=== PATIENT | male | born 1960 | race Caucasian/White ===

== ENCOUNTER 2019-05-28 15:07 | Outpatient (RCR) | payer SELFPAY | END 2019-05-29 00:01 | LOC: WOUND 15:07 | PROVIDERS: Family Provider Nurse Practitioner Family; Visit Provider Nurse Practitioner Family | DX: E11.621 Type 2 diabetes mellitus with foot ulcer (principal); L97.512 Non-pressure chronic ulcer of other part of right foot with fat layer exposed; I96 Gangrene, not elsewhere classified | CPT/HCPCS: 11042 ×3; 87070; 87075; 87205 ==

== ENCOUNTER 2019-06-18 09:44 | Outpatient (RCR) | payer SELFPAY | END 2019-06-29 23:59 | disposition home or self-care (01) | LOC: WOUND 09:44 | PROVIDERS: Family Provider Nurse Practitioner Family; Visit Provider Nurse Practitioner Family | DX: E11.621 Type 2 diabetes mellitus with foot ulcer (principal); L97.522 Non-pressure chronic ulcer of other part of left foot with fat layer exposed; I96 Gangrene, not elsewhere classified | CPT/HCPCS: 11042 ==

== ENCOUNTER 2019-07-23 10:19 | Outpatient (RCR) | payer SELFPAY | END 2019-07-28 23:59 | disposition home or self-care (01) | LOC: WOUND 10:19 | PROVIDERS: Family Provider Nurse Practitioner Family; Visit Provider Nurse Practitioner Family | DX: E11.621 Type 2 diabetes mellitus with foot ulcer (principal); L97.422 Non-pressure chronic ulcer of left heel and midfoot with fat layer exposed | CPT/HCPCS: 11042 ==

== ENCOUNTER 2019-08-20 10:01 | Outpatient (RCR) | payer SELFPAY | END 2019-08-28 23:59 | disposition home or self-care (01) | LOC: WOUND 10:01 | PROVIDERS: Family Provider Nurse Practitioner Family; Visit Provider Nurse Practitioner Family | DX: E11.621 Type 2 diabetes mellitus with foot ulcer (principal); L97.522 Non-pressure chronic ulcer of other part of left foot with fat layer exposed | CPT/HCPCS: 11042; L3260 ==

== ENCOUNTER 2019-09-03 09:38 | Outpatient (RCR) | payer SELFPAY | END 2019-09-27 23:59 | disposition home or self-care (01) | LOC: WOUND 09:38 | PROVIDERS: Family Provider Nurse Practitioner Family; Visit Provider Nurse Practitioner Family | DX: E11.621 Type 2 diabetes mellitus with foot ulcer (principal); L97.522 Non-pressure chronic ulcer of other part of left foot with fat layer exposed | CPT/HCPCS: 11042 ==

== ENCOUNTER 2019-09-27 13:36 | Outpatient (RCR) | payer SELFPAY ==
--- NOTE | 2019-09-27 13:53 | XR_ITS ---
WS: [id number] FOOT LEFT TECHNIQUE: 3 views of the left foot CLINICAL INFORMATION: PAIN, REDNESS, NONHEALING ULCER COMPARISON: March 21, 2019 FINDINGS: Soft tissue edema lower leg and ankle. Vascular calcification. Prominent plantar calcaneal spur uncha nged from previous. Soft tissue edema involving the great toe. No evidence of osteomyelitis. XR/XR foot LT min 3V* [id number] IMPRESSION: Soft tissue edema involving the great toe. No evidence of osteomyelitis.
== END 2019-09-27 23:59 | disposition home or self-care (01) ==
LOC: WOUND 13:36
PROVIDERS: Family Provider Nurse Practitioner Family; Visit Provider Nurse Practitioner Family
DX: E11.621 Type 2 diabetes mellitus with foot ulcer (principal); L97.522 Non-pressure chronic ulcer of other part of left foot with fat layer exposed; M79.672 Pain in left foot
CPT/HCPCS: 11042; 73630; 87070; 87077; 87176; 87186; 87205

== ENCOUNTER 2019-10-04 10:24 | Outpatient (CLI) | payer SELFPAY | END 2019-10-04 10:25 | disposition home or self-care (01) | LOC: WOUND 10:24 | PROVIDERS: Family Provider Nurse Practitioner Family; Visit Provider Nurse Practitioner Family | DX: E11.621 Type 2 diabetes mellitus with foot ulcer (principal); L97.522 Non-pressure chronic ulcer of other part of left foot with fat layer exposed | CPT/HCPCS: 11042; L3260 ==

== ENCOUNTER 2019-10-18 10:04 | Outpatient (CLI) | payer SELFPAY | END 2019-10-18 10:05 | disposition home or self-care (01) | LOC: WOUND 10:05 | PROVIDERS: Family Provider Nurse Practitioner Family; Visit Provider Nurse Practitioner Family | DX: E11.621 Type 2 diabetes mellitus with foot ulcer (principal); L97.522 Non-pressure chronic ulcer of other part of left foot with fat layer exposed | CPT/HCPCS: 11042 ==

== ENCOUNTER → 2019-10-25 08:13 | Outpatient (BNVA) | payer SELFPAY | PROVIDERS: Family Provider Nurse Practitioner Family; PCP Physician Assistant Medical; Referring Provider Physician Assistant Medical; Visit Provider Anesthesiology Pain Medicine | DX: M54.16 Radiculopathy, lumbar region (principal); M47.816 Spondylosis without myelopathy or radiculopathy, lumbar region; M48.061 Spinal stenosis, lumbar region without neurogenic claudication; M25.561 Pain in right knee; M25.562 Pain in left knee; M62.830 Muscle spasm of back; Z79.891 Long term (current) use of opiate analgesic | CPT/HCPCS: 99204 ==

== ENCOUNTER 2019-10-25 10:00 | Outpatient (CLI) | payer SELFPAY | END 2019-10-25 10:01 | disposition home or self-care (01) | LOC: WOUND 10:01 | PROVIDERS: Family Provider Nurse Practitioner Family; PCP Physician Assistant Medical; Visit Provider Nurse Practitioner Family | DX: E11.621 Type 2 diabetes mellitus with foot ulcer (principal); L97.522 Non-pressure chronic ulcer of other part of left foot with fat layer exposed | CPT/HCPCS: 11042 ==

== ENCOUNTER 2019-11-08 09:05 | Outpatient (CLI) | payer SELFPAY | END 2019-11-08 09:06 | disposition home or self-care (01) | LOC: WOUND 09:06 | PROVIDERS: Family Provider Nurse Practitioner Family; PCP Physician Assistant Medical; Visit Provider Nurse Practitioner Family | DX: E11.621 Type 2 diabetes mellitus with foot ulcer (principal); L97.522 Non-pressure chronic ulcer of other part of left foot with fat layer exposed | CPT/HCPCS: 11042; L3260 ==

== ENCOUNTER 2019-11-22 08:59 | Outpatient (CLI) | payer SELFPAY | END 2019-11-22 09:00 | disposition home or self-care (01) | LOC: WOUND 09:07 | PROVIDERS: Family Provider Nurse Practitioner Family; PCP Physician Assistant Medical; Visit Provider Nurse Practitioner Family | DX: E11.621 Type 2 diabetes mellitus with foot ulcer (principal); L97.522 Non-pressure chronic ulcer of other part of left foot with fat layer exposed | CPT/HCPCS: 11042 ==

== ENCOUNTER → 2022-04-02 09:49 | Outpatient (BNVA) | payer BC, MEDICAID, SELFPAY | PROVIDERS: Family Provider Nurse Practitioner Family; PCP Physician Assistant Medical; Visit Provider Urology | DX: N39.0 Urinary tract infection, site not specified (principal); N40.1 Benign prostatic hyperplasia with lower urinary tract symptoms; R33.9 Retention of urine, unspecified | CPT/HCPCS: 81003 ==

== ENCOUNTER → 2022-05-17 14:53 | Outpatient (BNVA) | payer BC, MEDICAID, SELFPAY | PROVIDERS: Family Provider Nurse Practitioner Family; PCP Physician Assistant Medical; Visit Provider Urology | DX: N40.1 Benign prostatic hyperplasia with lower urinary tract symptoms (principal); N39.0 Urinary tract infection, site not specified; R33.9 Retention of urine, unspecified | CPT/HCPCS: 87077; 87086; 87186 ==

== ENCOUNTER 2022-06-24 08:51 | Emergency (ER) | payer BC, MEDICAID, SELFPAY ==
[2022-06-24] VITALS (10 sets, daily range): BP systolic 133–177; BP diastolic 66–101; PULSE 66–95; RESP 16–18; TEMP 36.2; O2SAT 91–100; BMI 41.8
--- NOTE | 2022-06-24 08:55 | ECG_ITS ---
[facility] Test Date: 2022-06-24 Pat Name: Jerry Taveras Department: Room: Gender: Male Financial Systems Director: : 1960 Requested By: Evan Caro Order Number: [id number] Chencho MD: Liz Winters M.D. Measurements Intervals [place] Rate: 78 P: 59 TX: 195 QRS: 29 QRSD: 109 T: 50 QT: 375 QTc: 427 Interpretive Statements SINUS RHYTHM No previous ECG available for comparison Electronically Signed On 06-24-2022 15:59:55 MILLING MACHINIST by Liz Winters M.D. [id number]
--- NOTE | 2022-06-24 09:14 | ED_ITS ---
HPI - Dizziness General: Chief Complaint: Dizziness Stated Complaint: DIZZINESS Time Seen by Provider: 06/24/22 08:55 Source: patient Mode of arrival: ambulatory History of Present Illness: HPI Narrative: 61-year-old male presents emergency room with complaint of dizziness. He states he woke up yesterday he was attempting get out of bed he moved his head to the right side he did not do severe dizziness he stayed in bed for a while and it resolved. He had an episode earlier today where he moved his head triggered severe dizziness again but is completely resolved now. Noticed that with movement and changing position the dizziness is triggered. He states he did recently add a new blood pressure medicine but is not sure which it is. Reviewing his chart he is not on any diuretics. No recent head fall or trauma no difficulty speech swallowing vision or gait. MD elicited complaint: dizziness Onset (ago): day(s) (1) Timing: sudden onset Severity: mild Description: room spinning Context: change in body position Exacerbating factors: change in body position Relieving factors: remaining still Associated symptoms: Denies change in hearing, chest pain, chills, cough, diaphoresis, ear discharge, ear pressure, fevers/chills, headache(s), malaise, nausea, nasal congestion, palpitations, rash, short of breath, syncope, tinnitus, vomiting or weakness Associated neuro symptoms: Deny confusion, difficulty speaking, dysphagia, diplopia, extremity weakness, facial numbness, facial weakness, gait changes, numbness in extremities or visual changes Stroke scale total: 0 Review of Systems Const: Denies: fever(s), chills, fatigue, malaise or diaphoresis ENMT: Denies: throat pain, ear discharge, change in hearing, tinnitus or nasal congestion Card: Denies: chest pain, palpitations or syncope Resp: Denies: dyspnea, productive cough or non-productive cough GI: Denies: nausea, vomiting or dysphagia : Denies: flank pain, dysuria, urinary frequency or urinary urgency Skin/Breast: Denies: rash or pruritus Neuro: Denies: headache(s), numbness in extremities or confusion PFS ED PFSH: Medical History BPH loc w urin obs/LUTS Diabetes History of umbilical hernia Hypertension Mixed hyperlipidemia Family History Father , AT AGE 77 Cancer LUNG Mother , AT AGE 67 Stroke Other CAD (coronary artery disease) Chronic kidney disease (CKD) Social History Smoking and tobacco status: former smoker Alcohol intake: never Household members: spouse Marital status: Current occupational status: retired History of recent travel: No Physical Exam Const: COMMON NORMALS: no acute distress GENERAL APPEARANCE: cooperative and comfortable ORIENTATION/CONSCIOUSNESS: Yes awake, Yes oriented to person, Yes oriented to place and Yes oriented to time HENMT: COMMON NORMALS: normocephalic, atraumatic, hearing grossly normal bilaterally, external ears normal, EAC's normal, TM's normal bilaterally, Normal nasal mucous membranes and turbinates present, moist oral mucous membranes and oropharynx normal HEAD & SCALP: normocephalic and atraumatic NOSE: Normal nasal mucous membranes and turbinates present EXTERNAL EAR: Yes external ears normal EXTERNAL AUDITORY CANAL: EAC's normal TYMPANIC MEMBRANE: TM's normal bilaterally Eye: COMMON NORMALS: Equal, round and reactive pupils present, EOMs intact bilaterally, conjunctivae normal and no scleral icterus CONJUNCTIVA: Yes conjunctivae normal PUPIL: Yes Equal, round and reactive pupils present Neck/C-Spine: COMMON NORMALS: full ROM, no lymphadenopathy, supple and no JVD Resp: COMMON NORMALS: normal respiratory effort, No retractions, No use of accessory muscles and clear to auscultation bilaterally AUSCULTATION: clear to auscultation bilaterally Cardio: COMMON NORMALS: no JVD, regular rate, regular rhythm and No murmurs present (Cardio) RATE: regular rate RHYTHM: regular rhythm GI: COMMON NORMALS: Soft to palpation and No hepatosplenomegaly present AUSCULTATION: Yes normoactive bowel sounds PALPATION: Yes Soft to palpation, No Tenderness to palpation present (GI), No Guarding due to palpation present (GI) and Yes No hepatosplenomegaly present Extremity: COMMON NORMALS: normal to inspection, capillary refill normal, no c lubbing, cyanosis or edema, no calf tenderness and no pedal edema Neuro: SENSORIUM/ORIENTATION: Yes oriented to person, Yes oriented to place and Yes oriented to time Skin: COMMON NORMALS: no rashes or lesions noted GENERAL SKIN EXAM: no rashes or lesions noted Course Vital Signs: Vital signs: Vital Signs Temperature 97.1 F L 06/24/22 08:52 Pulse Rate 90 06/24/22 10:15 Respiratory Rate 18 06/24/22 11:33 Blood Pressure 144/78 06/24/22 11:33 Pulse Oximetry 91 06/24/22 11:33 Oxygen Delivery Me thod 06/24/22 08:56 MDM - Dizziness Medical Decision Making Labs imaging and EKG reviewed. No acute ST changes noted. Patient is able to ambulate without difficulty or not able to reproduce his dizziness this time we will discharge him home with meclizine to use as needed. Also advised him to follow-up with his doctor to reevaluate blood pressure on outpatient basis he was elevated in the emergency room if it persists he may need medication adjustment. Medical Records I reviewed the patient's medical records. Lab Data I reviewed the patient's lab results. 06/24/22 09:26 06/24/22 09:26 Laboratory Results WBC 7.4 10^3/uL (4.0-10.0) 06/24/22 09: RBC 3.87 10^6/uL (4.1-5.3) L 06/24/22 09:26 Hgb 12.1 g/dL (11.7-16.6) 06/24/22 09:26 Hct 38.1 % (42.0-52.0) L 06/24/22 09:26 MCV 98.4 fl (80-94) H 06/24/22 09:26 MCH 31.3 pg (28.0-34.0) 06/24/22 09: MCHC 31.8 g/dL (30.0-36.0) 06/24/22 09:26 RDW 14.0 % (12.1-15.1) 06/24/22 09:26 Plt Count 243 10^3/cmm (130-400) 06/24/22 09: MPV 9.3 fL (7.4-10.4) 06/24/22 09:26 Neut % (Auto) 66.9 % 06/24/22 09: Lymph % (Auto) 15.6 % 06/24/22 09:26 Taney % (Auto) 8.2 % 06/24/22 09:26 Eos % (Auto) 8.4 % 06/24/22 09: Baso % (Auto) 0.5 % 06/24/22 09: Neut # (Auto) 4.91 10^3/uL (1.8-7.7) 06/24/22 09: Lymph # (Auto) 1.2 10^3/uL (0.8-4.8) 06/24/22 09: Taney # (Auto) 0.6 10^3/uL (0.2-0.9) 06/24/22 09: Eos # (Auto) 0.6 10^3/uL (0.0-0.8) 06/24/22 09: Baso # (Auto) 0.0 10^3/uL (0.0-0.1) 06/24/22 09: Nucleated RBC % (auto) 0 % 06/24/22 09: Nucleated RBCs # 0.0 /100WBC 06/24/22 09:26 Sodium 134 mmol/L (136-145) L 06/24/22 09:26 Potassium 5.4 mmol/L (3.5-5.1) H 06/24/22 09: Chloride 100 mmol/L (98-107) 06/24/22 09: Carbon Dioxide 26 mmol/L (22-29) 06/24/22 09:26 Anion Gap 13.4 (5-19) 06/24/22 09:26 BUN 20 mg/dL (6-20) 06/24/22 09: Creatinine 1.0 mg/dL (0.7-1.2) 06/24/22 09:26 GFR Calculation 76.5 mL/min (90-130) L 06/24/22 09:26 Glucose 205 mg/dL (65-115) H 06/24/22 09:26 POC Glucose 194 mg/dL (70-110) H 06/24/22 09:13 Calculated Osmolality 287 mOsm/kg (285-295) 06/24/22 09:26 Calcium 9.8 mg/dL (8.5-10.5) 06/24/22 09:26 Total Bilirubin 0.3 mg/dL (0.15-1.2) 06/24/22 09:26 AST 16 U/L (0-40) 06/24/22 09:26 ALT 26 U/L (0-41) 06/24/22 09:26 Alkaline Phosphatase 108 U/L (40-130) 06/24/22 09:26 Total Protein 6.5 g/dL (6.6-8.7) L 06/24/22 09:26 Albumin 3.8 g/dL (3.5-5.2) 06/24/22 09:26 Globulin 2.7 g/dL (1.3-4.6) 06/24/22 09:26 Discharge Plan Discharge Patient Disposition: Home Clinical Impression: Benign paroxysmal positional vertigo Condition: Stable Prescriptions: New meclizine 25 mg tablet 25 mg PO QID PRN (Reason: dizziness) Qty: 20 0RF No Action metformin 1,000 mg tablet 1,000 mg PO BID metformin 500 mg tablet 500 mg PO DAILY fluoxetine [Prozac] 40 mg capsule 40 mg PO BID Rx Instructions: administer in the morning and at noon/midday aspirin [Adult Aspirin Regimen] 81 mg tablet,delayed release (DR/EC) 81 mg PO DAILY ibuprofen 200 mg capsule 200 mg PO Q6H PRN Daily Multivitamin 200-100-500 mcg capsule PO tizanidine 4 mg tablet 4 mg PO BID MDD 2 PRN (Reason: muscle spasticity) Qty: 60 0RF gabapentin 300 mg capsule 600 mg PO TID tramadol 50 mg tablet 50 mg PO BID amlodipine 10 mg tablet 5 mg PO DAILY glipizide 10 mg tablet 10 mg PO .am diclofenac sodium 75 mg tablet,delayed release (DR/EC) 75 mg PO BID losartan-hydrochlorothiazide 100-12.5 mg tablet 1 tab PO DAILY tamsulosin 0.4 mg capsule 0.4 mg PO BID Qty: 180 3RF glipizide 10 mg tablet 10 mg PO .pm Victoza 2-Arnie 0.6 mg/0.1 mL (18 mg/3 mL) pen injector 1.8 mg SUBCUT DAILY insulin glargine [Lantus Solostar U-100 Insulin] 100 unit/mL (3 mL) insulin pen 5 unit SUBCUT .PM methenamine hippurate 1 gram tablet 1 g PO BID Qty: 60 12RF Rx Instructions: 1 pill twice a day with 1 g vitamin C each dose sulfamethoxazole-trimethoprim [Bactrim DS] 800-160 mg tablet 1 tab PO BID Qty: 60 2RF Rx Instructions: DO NOT TAKE METHENAMINE with use of this antibiotic Discharge Orders: Discharge ED (Routine); Ordered 06/24/22 Ordered By: Evan Perez Referrals: Reno Casey [Primary Care Provider] - Discharge Diet: Usual diet Discharge Activity: Increase activity as tolerated Patient Instructions: Opioid Safety, Pain Management Activity Restrictions/Additional Instructions: You were seen today for positional vertigo. Laboratory tests and exam were unremarkable. Recommend that you use meclizine as needed for your symptoms. Your blood pressure was slightly elevated while you are in the emergency room follow-up with your primary care doctor to have that reevaluated sometime within the next 2 weeks. Coding Level of Care Code ED Medical Records Coder for Chg Fwd Exam Comprehensive
[2022-06-24 09:31] LABS: Basophils % 0.5 %; Eosinophils # 0.6 10^3/uL (0.0-0.8); Eosinophils % 8.4 %; Hematocrit 38.1 % (42.0-52.0); Hemoglobin 12.1 g/dL (11.7-16.6); Lymphocytes # 1.2 10^3/uL (0.8-4.8); Lymphocytes % 15.6 %; Mean Corpuscular HGB Conc 31.8 g/dL (30.0-36.0); Mean Corpuscular Hemoglobin 31.3 pg (28.0-34.0); Mean Corpuscular Volume 98.4 fl (80-94); Mean Platelet Volume 9.3 fL (7.4-10.4); Monocytes # 0.6 10^3/uL (0.2-0.9); Monocytes % 8.2 %; Neutrophils # 4.91 10^3/uL (1.8-7.7); Neutrophils % 66.9 %; Nucleated Red Blood Cells % 0 %; Platelet Count 243 10^3/cmm (130-400); Red Blood Count 3.87 10^6/uL (4.1-5.3); White Blood Count 7.4 10^3/uL (4.0-10.0)
[2022-06-24 09:34] LABS: Glucose Point of Care 194 mg/dL (70-110)
[2022-06-24 10:00] LABS: Alanine Aminotransferase 26 U/L (0-41); Albumin Level 3.8 g/dL (3.5-5.2); Alkaline Phosphatase 108 U/L (40-130); Anion Gap 13.4 (5-19); Aspartate Amino Transferase 16 U/L (0-40); Blood Urea Nitrogen 20 mg/dL (6-20); Calcium 9.8 mg/dL (8.5-10.5); Carbon Dioxide 26 mmol/L (22-29); Chloride 100 mmol/L (98-107); Globulin 2.7 g/dL (1.3-4.6); Glomerular Filtration Rate 76.5 mL/min (90-130); Glucose 205 mg/dL (65-115); Osmolality Calculated 287 mOsm/kg (285-295); Potassium 5.4 mmol/L (3.5-5.1); Sodium 134 mmol/L (136-145); Total Bilirubin 0.3 mg/dL (0.15-1.2); Total Protein 6.5 g/dL (6.6-8.7)
--- NOTE | 2022-06-24 11:06 | PC.NURSE ---
Patient ambulated with this nurse in hallway with rolling walker - pt uses a walker/cane at home. Pt tolerated well with nurse at side. Denies any dizziness or lightheadedness
== END 2022-06-24 11:39 | disposition home or self-care (01) ==
PROVIDERS: Emergency Provider Family Medicine; PCP Physician Assistant Medical
DX: H81.10 Benign paroxysmal vertigo, unspecified ear (principal); Z79.82 Long term (current) use of aspirin; Z79.4 Long term (current) use of insulin; Z79.84 Long term (current) use of oral hypoglycemic drugs; E11.9 Type 2 diabetes mellitus without complications; I10 Essential (primary) hypertension; E78.2 Mixed hyperlipidemia; Z87.891 Personal history of nicotine dependence
CPT/HCPCS: 36415; 36416; 80053; 82962; 85025; 93005; 99284

== ENCOUNTER → 2022-09-21 12:40 | Outpatient (BNVA) | payer BC, MEDICAID, SELFPAY | PROVIDERS: PCP Physician Assistant Medical; Visit Provider Urology | DX: R33.9 Retention of urine, unspecified (principal); N40.1 Benign prostatic hyperplasia with lower urinary tract symptoms; N39.0 Urinary tract infection, site not specified | CPT/HCPCS: 81003; 87077; 87086; 87186 ==

== ENCOUNTER → 2025-01-29 13:30 | Outpatient (BNVA) | payer MEDICAID, SELFPAY | PROVIDERS: PCP Physician Assistant Medical; Visit Provider Internal Medicine | DX: I47.10 Supraventricular tachycardia, unspecified (principal); R00.2 Palpitations; R55 Syncope and collapse; Z87.891 Personal history of nicotine dependence; R07.9 Chest pain, unspecified; Z86.73 Personal history of transient ischemic attack (TIA), and cerebral infarction without residual deficits; E66.9 Obesity, unspecified; Z68.42 Body mass index [BMI] 45.0-49.9, adult; I71.20 Thoracic aortic aneurysm, without rupture, unspecified; R33.9 Retention of urine, unspecified | CPT/HCPCS: 36415; 80048; 83880; 93005; 99204 ==

== ENCOUNTER 2025-02-05 13:14 | Outpatient (CLI) | payer MEDICARE, MEDICAID, SELFPAY ==
--- NOTE | 2025-02-05 14:00 | USCV_ITS ---
Jerry Taveras Age: 64 Gender: M : 1960 Exam Date: 02/05/2025 13:49 Ordering Phys: Bautista Salaazr M.D ([email or web address]) Technologist: SUSAN Exam Location: [facility] – [place], [place] Indication: Stenosis Risk Factors: Previous Vascular Surgery: Right Brachial BP: / Left Brachial BP: / Right Left Velocity (cm/s) Spectral Plaque Velocity (cm/s) Spectral Plaque Syst/Diast Broadening Syst/Diast Broadening 115.20/23.70 Prox CCA 138.50/ 19.60 152.20/34.60 Mid CCA 163.70/ 23.50 190.40/35.80 Distal CCA 180.40/ 23.90 66.60/ 17.40 Prox ICA 28.10 / 6.10 100.00/29.70 Mid ICA 499.30/ 211.40 75.60/ 24.20 Distal ICA 70.30 / 12.10 159.20 ECA 134.60 0.50 ICA/CCA 2.80 Antegrade Vertebral Antegrade 23.00/ 4.60 cm/s 87.90/ 21.30 cm/s Tri Subclavian Tri 175.1 204.4 0 0 CONCLUSIONS Right ICA stenosis <50%. Moderate atheromatous plaque right carotid bulb/ICA. Suspected Left ICA stenosis 70-99% . Recommend further evaluation with CTA. Decreased velocity proximal ICA with markedly elevated PSV mid ICA likley due to post stenotic turbulence. Moderate atheromatous plaque left carotid bulb/ICA may obscure stenosis. Normal antegrade Doppler flow noted in the right vertebral artery. Normal antegrade Doppler flow noted in the left vertebral artery. Trell Tate MD (Electronically Signed) Final Date: 05 February 2025 15:48 S
== END 2025-02-05 13:15 | disposition home or self-care (01) ==
LOC: RAD 13:15
PROVIDERS: PCP Registered Nurse; Visit Provider Internal Medicine
DX: I65.21 Occlusion and stenosis of right carotid artery (principal)
CPT/HCPCS: 93880

== ENCOUNTER → 2025-04-15 12:20 | Outpatient (BNVA) | payer MEDICARE, MEDICAID, SELFPAY | PROVIDERS: PCP Registered Nurse; Visit Provider Internal Medicine | DX: R00.2 Palpitations (principal); R55 Syncope and collapse; I47.10 Supraventricular tachycardia, unspecified | CPT/HCPCS: 99213 ==